=== PATIENT | female | born 2000 | race Caucasian/White ===

== ENCOUNTER → 2023-02-10 | Outpatient (CLI) | payer OTHER, SELFPAY ==
[2023-02-17 17:53] LABS: HPV Reflexed? NOT INDICATED
== END | disposition home or self-care (01) ==
PROVIDERS: Referring Provider Advanced Practice Midwife; Visit Provider Advanced Practice Midwife
DX: Z12.4 Encounter for screening for malignant neoplasm of cervix (principal)
CPT/HCPCS: 88175; G0145

== ENCOUNTER → 2023-02-17 | Outpatient (CLI) | payer OTHER, SELFPAY ==
--- NOTE | 2023-02-17 14:17 | US_ITS ---
STUDY: ULTRASOUND TRANSVAGINAL CLINICAL: Female, 22 years old. abnormal uterine bleeding TECHNIQUE: Transvaginal COMPARISON: None. FINDINGS: Normal uterine size measuring 7.7 x 5.3 x 4.9 cm in maximal craniocaudal dimension. There are no myometrial masses. Thickened endometrial lining measuring 21.4 mm. There are no endometrial masses, and there is no fluid in the endometrial cavity. Normal uterine cervix. Normal right ovary, measuring 2.9 1.6 x 2.1 cm. There are multiple follicles without a dominant cyst. Incidental finding of isoechoic structure measuring 2.2 x 1.6 cm demonstrating increased vascularity of indeterminate etiology or clinical significance.. Normal left ovary, measuring 2.6 x 1.7 x 1.2 cm. There are multiple follicles without a dominant cyst. There is mild free fluid in the pelvis. US/Transvaginal Non- IMPRESSION: Diffusely thickened endometrial lining of uncertain clinical significance possibly physiologic. Small amount of free fluid in the cul-de-sac possibly due to recent ovulation Incidental finding of hyper vascular appearance to isoechoic structure in the right adnexa of uncertain etiology or clinical significance possibly due to early inflammatory changes Recommend clinical correlation and follow-up studies if clinically warranted Electronically Signed: Ángel Canas MD at 19:37 EST ,
== END | disposition home or self-care (01) ==
PROVIDERS: Visit Provider Advanced Practice Midwife
DX: N93.9 Abnormal uterine and vaginal bleeding, unspecified (principal)
CPT/HCPCS: 76830

== ENCOUNTER → 2023-05-05 | Outpatient (CLI) | payer OTHER, SELFPAY ==
--- NOTE | 2023-05-05 14:54 | US_ITS ---
HISTORY: follow up US -- Menorrhagia. TECHNIQUE: Transvaginal pelvic ultrasound was performed with baxter scale and color Doppler evaluation. 55 images. COMPARISON: 02/17/2023. FINDINGS: UTERUS: 7.7 x 4.2 x 5.7 cm. Retroverted. ENDOMETRIAL THICKNESS: 13 mm. RIGHT OVARY: 2.2 x 3.8 x 3.5 cm with small follicles. 2.3 cm simple cyst. LEFT OVARY: 1.3 x 2.2 x 3 cm with small follicles. No adnexal masses. FREE FLUID: Trace. US/Transvaginal Non- IMPRESSION: Small right ovarian cyst. Trace free fluid in the pelvis. Decreased endometrial thickening. Electronically Signed: Gaviota Earl MD at 15:09 EST ,
== END | disposition home or self-care (01) ==
PROVIDERS: Referring Provider Advanced Practice Midwife; Visit Provider Advanced Practice Midwife
DX: N93.9 Abnormal uterine and vaginal bleeding, unspecified (principal)
CPT/HCPCS: 76830